=== PATIENT | female | born 1975 | race Caucasian/White ===

== ENCOUNTER 2022-06-17 12:39 | Emergency (ER) | payer OTHER, SELFPAY ==
[2022-06-17 12:48] VITALS: BP 152/99; PULSE 88; RESP 18; TEMP 36.8; O2SAT 96; BMI 39.1
--- NOTE | 2022-06-17 13:06 | W.ED.WOUNDLC ---
HPI - Wound/Laceration General: Chief Complaint: Wound/Laceration Stated Complaint: left forearm lac Time Seen by Provider: 06/17/22 12:59 Source: patient Mode of arrival: ambulatory Limitations: no limitations History of Present Illness: Patient is a 46-year-old female presents to ED today for evaluation of an accidental laceration to her left forearm that she sustained just prior to arrival after using a box knife. Tetanus is up-to-date. Bleeding is controlled. She denies numbness, tingling, loss of sensation. Onset (ago): hour(s) Extremity Location: Left: forearm Place: home Patient tetanus UTD: Yes Context: accidental Associated symptoms: Reports no associated symptoms Treatments prior to arrival: bandage Review of Systems Musc: Reports: extremity pain Skin/Breast: Reports: other (laceration to L forearm) Neuro: Denies: numbness in extremities, weakness in extremities or sensory changes Physical Exam Const: COMMON NORMALS: no acute distress, patient oriented x3, no limitations, alert and well nourished Extremity: GENERAL: Yes normal exam except as noted LEFT UPPER EXTREMITY: Yes lower arm OTHER: pt has a 2cm superficial laceration to dorsal L distal forearm without bleeding; there is no tendon or muscle involvement present Neuro: COMMON NORMALS: patient oriented x3, moves all extremities, no focal motor deficits and no sensory deficits noted SENSORIUM/ORIENTATION: Yes alert Skin: NARRATIVE SKIN EXAM: see above for pertinent skin findings Procedures Laceration Laceration 1: Site: upper extremity Side (If applicable): left Size (cm): 3.0 Description: linear Depth: simple, single layer Local Anesthetic: lidocaine 1% and with epi Amount of anesthesia used (mL): 3.0 Pre-repair: wound explored and irrigated extensively Skin layer closed with: nylon Size (cm): 4-0 Number of sutures: 4 Technique: simple, interrupted Course Vital Signs: Vital signs: Vital Signs Temperature 98.3 F 06/17/22 12:48 Pulse Rate 88 06/17/22 12:48 Respiratory Rate 18 06/17/22 12:48 Blood Pressure 152/99 06/17/22 12:48 Pulse Oximetry 96 06/17/22 12:48 Oxygen Delivery Me thod 06/17/22 12:48 MDM - Wound/Laceration Medical Decision Making Wound was irrigated and repaired as documented. Wound care/precautions for home discussed. Discharge Plan Discharge Patient Disposition: Home Clinical Impression: Laceration of left forearm Qualifiers: Encounter type: initial encounter Qualified Code(s): S51.812A - Laceration without foreign body of left forearm, initial encounter Condition: Stable Discharge Orders: Discharge ED (Routine); Ordered 06/17/22 Ordered By: Rosanna Blount Referrals: Juanita Rodriguez MD [Primary Care Provider] - Patient Instructions: Care For Your Stitches (DC), Laceration (DC) Activity Restrictions/Additional Instructions: Keep wound/laceration clean with warm soap and water twice daily. Monitor for signs of infection such as redness, swelling, increased pain, or drainage. Please seek medical re-evaluation if these occur. If you received sutures today these will need to be removed (unless you were told by the provider that they are absorbable). The provider should have discussed with you the length of time until removal-7 DAYS. You may return to the emergency department for this service. If your wound was closed with Steri-Strips or glue/adhesive these will fall off within the next week or so. Coding Level of Care Code ED Senior Software Engineering Manager for [employer]
== END 2022-06-17 13:45 | disposition home or self-care (01) ==
PROVIDERS: Emergency Provider Physician Assistant; PCP Family Medicine
DX: S51.812A Laceration without foreign body of left forearm, initial encounter (principal); W26.0XXA Contact with knife, initial encounter
CPT/HCPCS: 12002; 99282

== ENCOUNTER → 2023-08-14 13:54 | Outpatient (BNVA) | payer OTHER, SELFPAY | PROVIDERS: PCP Family Medicine; Visit Provider Nurse Practitioner | DX: I10 Essential (primary) hypertension (principal); E28.2 Polycystic ovarian syndrome | CPT/HCPCS: 80053; 80061; 84443; 85025 ==

== ENCOUNTER → 2023-08-15 | Outpatient (BNVA) | payer OTHER, SELFPAY | PROVIDERS: PCP Family Medicine; Visit Provider Nurse Practitioner | DX: I10 Essential (primary) hypertension (principal); E28.2 Polycystic ovarian syndrome; D64.9 Anemia, unspecified | CPT/HCPCS: 83550 ==

== ENCOUNTER → 2023-11-25 14:46 | Outpatient (BNVA) | payer BC, SELFPAY | PROVIDERS: PCP Family Medicine; Visit Provider Nurse Practitioner | DX: D50.8 Other iron deficiency anemias (principal); I10 Essential (primary) hypertension; D50.9 Iron deficiency anemia, unspecified; E66.01 Morbid (severe) obesity due to excess calories | CPT/HCPCS: 80053; 83540; 85025 ==

== ENCOUNTER 2023-12-16 15:16 | Outpatient (CLI) | payer BC, SELFPAY ==
--- NOTE | 2023-12-16 15:20 | MM_ITS ---
WS: [id number] BILATERAL 3D TOMOSYNTHESIS DIGITAL SCREENING MAMMOGRAPHY WITH CAD CLINICAL INFORMATION: Z12.31 - Encounter for screening mammogram for malignant ... HISTORY: Screening mammogram. No current complaints. COMPARISON: Baseline TECHNIQUE: Bilateral CC and MLO views. FINDINGS: Scattered fibroglandular densities bilaterally. No suspicious focal mass, asymmetry, calcifications, or architectural distortion. No evidence of malignancy. MM/[place] [id number] IMPRESSION: BI-RADS: 1-Negative FOLLOW UP: 1 Year Follow-up Recommend return to annual screening mammography.
== END 2023-12-16 15:17 | disposition home or self-care (01) ==
LOC: MOBLMAM 15:18
PROVIDERS: PCP Nurse Practitioner; Visit Provider Nurse Practitioner
DX: Z12.31 Encounter for screening mammogram for malignant neoplasm of breast (principal)
CPT/HCPCS: 77063; 77067